=== PATIENT | male | born 1995 | race Caucasian/White ===

== ENCOUNTER 2020-11-29 18:14 | Emergency (ER) | payer OTHER ==
[~2020-11-29] VITALS: Ht 177.8 cm; Wt 63.5 kg
[2020-11-29 18:32] VITALS: BP 126/68
[2020-11-29] MEDS ORDERED: TETANUS,DIPTH,PERTUSS P/F (BOOSTRIX) 0.5 ML VIAL IM ONE (18:45)
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
[2020-11-29 19:08] LABS: BASOPHILS % (AUTO) 1 % (0-10); EOSINOPHILS % (AUTO) 4 % (0-10); HEMATOCRIT 43 % (40-54); HEMOGLOBIN 14.9 g/dL (13.3-17.7); LYMPHOCYTES # (AUTO) 2.1 X 10^3 (1.0-4.0); LYMPHOCYTES % (AUTO) 22 % (12-44); MEAN CORPUSCULAR HEMOGLOBIN 30 pg (25-34); MEAN CORPUSCULAR HGB CONC 35 g/dL (32-36); MEAN CORPUSCULAR VOLUME 88 fL (80-99); MEAN PLATELET VOLUME 10.6 fL (9.0-12.2); MONOCYTES % (AUTO) 9 % (0-12); NEUTROPHILS % (AUTO) 63 % (42-75); PLATELET COUNT 250 10^3/uL (130-400); WHITE BLOOD COUNT 9.4 10^3/uL (4.3-11.0)
[2020-11-29 19:09] LABS: BASOPHILS # (AUTO) 0.1 10^3/uL (0.0-0.1); EOSINOPHILS # (AUTO) 0.4 10^3/uL (0.0-0.3); MONOCYTES # (AUTO) 0.8 X 10^3 (0.0-1.0)
[2020-11-29 19:26] LABS: ALANINE AMINOTRANSFERASE 24 U/L (0-55); ALKALINE PHOSPHATASE 59 U/L (40-136); BILIRUBIN,TOTAL 0.4 MG/DL (0.1-1.0); BUN/CREATININE RATIO 15; CALCIUM 9.4 MG/DL (8.5-10.1); CARBON DIOXIDE 25 MMOL/L (21-32); CHLORIDE 106 MMOL/L (98-107); CREATININE SERUM 0.99 MG/DL (0.60-1.30); GFR ESTIMATED 93; GLUCOSE 108 MG/DL (70-105); POTASSIUM 3.8 MMOL/L (3.6-5.0); SODIUM 141 MMOL/L (135-145); TOTAL PROTEIN 7.4 GM/DL (6.4-8.2)
[2020-12-02 12:56] LABS: HEPATITIS C ANTIBODY C Non-Reactive (Non-Reactive)
== END 2020-11-29 19:16 | disposition home or self-care (01) ==
LOC: EDUNIT# 18:14 → ER FS 18:16
DX: S60.811A Abrasion of right wrist, initial encounter (principal); S50.311A Abrasion of right elbow, initial encounter; Z57.9 Occupational exposure to unspecified risk factor; Z23 Encounter for immunization; Y04.2XXA Assault by strike against or bumped into by another person, initial encounter
CPT/HCPCS: 36415; 80053; 85025; 86703; 86803; 87522; 99284; G0499; 86706; 90715

== ENCOUNTER 2021-01-05 09:57 | Emergency (ER) | payer OTHER ==
[~2021-01-05] VITALS: Ht 177.8 cm; Wt 63.5 kg
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
[2021-01-05] MEDS ORDERED: FEXO1TAB43 PO (10:40)
[2021-01-05] MEDS ORDERED: IBUPROFEN 600 MG (MOTRIN) TAB PO ONE (10:45)
[2021-01-05 10:57] VITALS: BP 127/69
== END 2021-01-05 10:57 | disposition home or self-care (01) ==
LOC: EDUNIT# 09:57 → ER FS 09:59
DX: R51.9 Headache, unspecified (principal); H93.8X2 Other specified disorders of left ear
CPT/HCPCS: 99281

== ENCOUNTER 2021-03-09 16:51 | Emergency (ER) | payer BC, OTHER ==
[~2021-03-09] VITALS: Ht 177.8 cm; Wt 65.0 kg
[~2021-03-09 16:51] MED LIST: FEXO1TAB43 PO
[2021-03-09 16:57] VITALS: BP 120/75
--- NOTE | 2021-03-09 17:29 | Diagnostic Imaging Report ---
EXAM: Forearm 2 view right. INDICATION: Fall. Right arm pain. COMPARISON: None. FINDINGS: No fracture or malalignment. Soft tissue shadows are unremarkable. IMPRESSION: Negative right forearm radiographs. Dictated by: Dictated on workstation # [id number]
--- NOTE | 2021-03-09 17:40 | ED Upper Extremity ---
General Chief Complaint: Upper Extremity Stated Complaint: RT ARM INJ Nursing Triage Note: Patient reports he slipped on a dryer sheet today and hit his right forearm on a piano. He reports continued pain in his right arm. 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 Patient slipped on a dryer sheet and scraped his forearm off of a shelf as he fell. He denies shoulder, arm, elbow and wrist pain. The patient has an 15 cm abrasion and soft tissue contusion over the extensor forearm. There is no obvious deformity. Range of motion and forearm use is intact. The injury occurred just prior to ED arrival. No other symptoms or complaints. Onset: just prior to arrival Severity: mild Pain/Injury Location: right forearm Method of Injury: direct blow Modifying Factors: Improves With Other Allergies and Home Medications Allergies Coded Allergies: No Known Drug Allergies (Unverified , 11/29/20) Patient Home Medication List Home Medication List Reviewed: Yes Fexofenadine/Pseudoephedrine (Kadi-D 24 Hour Tablet) 1 Each Tab.er.24h, 1 EACH PO DAILY Prescribed by: RUDDY HERNANDEZ on 01/05/21 1041 Review of Systems Constitutional: see HPI Musculoskeletal: see HPI, muscle pain Skin: other Past Ulguwuz-Ynhkui-Ijtbez Hx Patient Social History Tobacco Use?: No Substance use?: No Alcohol Use?: No Pt feels they are or have been: No Past Medical History Surgeries: No Physical Exam Vital Signs Vital Signs - First Documented 03/09/21 16:57 Temp 36.9 Pulse 89 Resp 18 B/P (MAP) 120/75 (90) Pulse Ox 100 O2 Delivery Room Air Capillary Refill : Less Than 3 Seconds Height, Weight, BMI Height: '" Weight: lbs. oz. kg; 20.00 BMI Method: General Appearance: WD/WN Shoulder: normal inspection, non-tender Elbow/Forearm: Right, abrasions, soft tissue tenderness (Extensor right forearm) Wrist: Yes normal inspection, Yes non-tender Progress/Results/Core Measures Results/Orders My Orders Orders - RUDDY HERNANDEZ DO Forearm 2 View Right (03/09/21 17:08) Vital Signs/I&O 03/09/21 16:57 Temp 36.9 Pulse 89 Resp 18 B/P (MAP) 120/75 (90) Pulse Ox 100 O2 Delivery Room Air Blood Pressure Mean: 90 Departure Communication (Admissions) X-ray right forearm: No obvious displaced fracture. Impression Primary Impression: Forearm contusion Additional Impression: Forearm abrasion Disposition: HOME, SELF-CARE Condition: Stable Departure-Patient Inst. Decision time for Depature: 17:40 Referrals: NO,LOCAL PHYSICIAN (PCP/Family) Primary Care Physician Patient Instructions: Skin Abrasions (DC), Minor Contusion ED Add. Discharge Instructions: Please take ibuprofen 600 mg 3 times daily for pain and swelling and apply bacitracin or topical antibiotic of choice to right forearm abrasion 2-3 times daily apply ice for additional pain relief. Restrict work light duty for the next 3 to 4 days. Follow-up with your PCP as needed. All discharge instructions reviewed with patient and/or family. Voiced understanding. Work/School Note: Work Release Form Date Seen in the Emergency Department: Mar 09, 2021 Return to Work: Mar 10, 2021 Other Restrictions Listed Below: Restrict duties to light use of right arm with ifting < 20 lbs for 4 days RUDDY HERNANDEZ DO Mar 09, 2021 17:40
== END 2021-03-09 17:54 | disposition home or self-care (01) ==
LOC: EDUNIT# 16:51 → ER FS 16:52
DX: S50.11XA Contusion of right forearm, initial encounter (principal); W01.0XXA Fall on same level from slipping, tripping and stumbling without subsequent striking against object, initial encounter
CPT/HCPCS: 73090